=== PATIENT | female | born 1955 | race Caucasian/White ===

== ENCOUNTER 2020-08-24 12:45 | Outpatient (RCR) | payer OTHER, SELFPAY ==
--- NOTE | 2020-08-04 17:37 | PT.OIE ---
Current Diagnoses Stiffness of unspecified hip, not elsewhere classified (08/04/20) Muscle weakness (generalized) (08/04/20) Mixed incontinence (08/04/20) Pelvic and perineal pain (08/04/20) Abnormal posture (08/04/20) Visit Care Team Role Provider Type Hazel Otero ND Attending Provider Non-Staff Primary Care Provider Referring Provider Specialty: Naturopathy Address: [address] [place] [address], [facility] Email: Physical Therapy Initial Evaluation PT-OP-A Visit Information Start: 07/30/20 18:07 Freq: Status: Active Protocol: Document 08/04/20 10:36 LRN (Rec: 08/04/20 12:35 LRN [id number]) Out-Patient Physical Therapy Visit Information Visit Information Visit Type Initial Evaluation Visit Start Time 10:36 Visit Stop Time 11:16 Total Visit Minutes 40 Visit Number 1 Evaluation Information Evaluation Date 08/04/20 Precautions Precautions Uncontrolled HBP, Bruise easily PT-OP-B Current Condition Start: 07/30/20 18:07 Freq: Status: Active Protocol: Document 08/04/20 10:36 LRN (Rec: 08/04/20 12:35 LRN [id number]) Current Condition History of Current Condition Onset Date 20 yrs ago Current Complaints Small to lg leakage with urgency, sometimes uncontrolled flatulence. History of Current Condition Pt has had problem with urinary leakage for 20 yrs and was recommended by referring physician for trial of PT to help with incontinence. Prior Treatments and Tests None Future Testing and Treatments Planned None Developmental History Developmental History No childbearing. Treatment Goals Patient/Caregiver Goals Pt goal is to not leak with urgency and to decrease number of voids through the day. Prior Functional Status Baseline Function- ADL's Independent Baseline Function- Mobility Independent Baseline Function- Gait No leakage Baseline Function- Recreation/Hobbies Travelling for 3-4 hours able to travel without needing to stop or leaked. Baseline Function- Other Travelling for 3-4 hours able to travel without needing to stop or leaked. Current Functional Impairments (Reported) Functional Limitations- ADL's Sometimes traveling 30' is a problem if drinking, and has major urgency when arriviing in [place] and can hardly hold her urine. Functional Limitations- Recreation/ Same as prior. Hobbies Functional Limitations- Other Traveling for 3-4 hours able to travel without needing to stop or leaked. Personal Factors Other Personal Factors That May Effect Uncontrolled high blood Therapy/Recovery pressure. PT-OP-C Subjective Start: 07/30/20 18:07 Freq: Status: Active Protocol: Document 08/04/20 10:36 LRN (Rec: 08/04/20 12:35 LRN [id number]) Patient Questionnaires Pelvic Pain and Urgency/Frequency Patient Symptom Scale Pelvic Pain Score 10 PT-OP-I Pelvic Floor Start: 07/30/20 18:07 Freq: Status: Active Protocol: Document 08/04/20 10:36 LRN (Rec: 08/04/20 12:35 LRN [id number]) Pelvic Floor Assessment Urine Pelvic Floor Surgery Yes Urinary Symptoms Urge Sensation Leakage Size Large Leakage Cause Urge Leaks Per Day 2 Voiding Frequency 10 Nocturia 1 Pads Used In 24 Hours 1 Urine Pad Type Panty Liner Bowel Bowel Surgery No Bowel Symptoms Uncontrolled Flatulence Bowel Movement Frequency 1 [place] Stool Chart Type 1-7 4 Pelvic Clock Pelvic Clock 12-3 Tenderness,Tightness Pelvic Clock 3-6 Tenderness,Tightness Pelvic Clock 6-9 Tenderness,Tightness Pelvic Clock 9-12 Tightness Pelvic Clock Other Specific areas of tenderness: 2-5 & 7-10 of PF clock Tender at Perineal Node Perineal Descent Resting Absent Bearing Absent Contraction Ability Voluntary Contraction Weak Voluntary Relaxation Weak Manual Muscle Testing Left 2 Manual Muscle Testing Right 2 Manual Muscle Testing Anterior 2 Manual Muscle Testing Posterior 1 Muscle Endurance (Seconds) 10 Number of Quick Contractions In 10 3 Seconds Comments Pelvic Floor Comments Poor relaxation of PF PT-OP-J Posture/Palpation/Skin Start: 07/30/20 18:07 Freq: Status: Active Protocol: Document 08/04/20 10:36 LRN (Rec: 08/04/20 12:35 LRN [id number]) Posture Evaluation Position Standing Head/C-Spine Posture Forward Head T-Spine Posture Flattened L-Spine Posture Increased Lordosis Shoulder Posture (L) Elevated Arm Posture (L) Neutral,(R) Neutral Pelvis Posture Anteriorly Tilted,(R) Iliac Crest Superior Weight Distribution Balanced Knee Posture (L) Genu Valgus,(R) Genu Valgus Comments Posture Comments Valgus Achilles L>R, C-curve with apex left in L/S, R PSIS is deep in standing. PT-OP-K Range of Motion Start: 07/30/20 18:07 Freq: Status: Active Protocol: Document 08/04/20 10:36 LRN (Rec: 08/04/20 12:35 LRN [id number]) Lumbar Spine Range of Motion Lumbar Spine Active Percentage Testing Position Standing Rotation Right 80 ROM Limitations Soft Tissue Tightness Comments Trunk AROM is normal except with R rotation as shown above . Pt noted tightness with R SB. Hip Goniometric Range of Motion Hip Right Passive Testing Position Supine Internal Rotation 40 External Rotation 75 Left Passive Testing Position Supine Internal Rotation 45 External Rotation 60 PT-OP-M Strength Start: 07/30/20 18:07 Freq: Status: Active Protocol: Document 08/04/20 10:36 LRN (Rec: 08/04/20 12:35 LRN [id number]) Trunk Strength Trunk Manual Muscle Testing Core Stabilization Poor core stabilization with LE MMT. Hip Strength Hip Manual Muscle Testing Right Flexion (L2) 3+ Fair+ Extension (S1) 3 Fair Abduction 3 Fair Adduction 5 Normal External Rotation 4+ Good+ Internal Rotation 4 Good Left Flexion (L2) 3 Fair Extension (S1) 3 Fair Abduction 3 Fair Adduction 5 Normal External Rotation 3 Fair Internal Rotation 4+ Good+ Comments L knee creaks with ER testing PT-OP-Q Treatments Start: 07/30/20 18:07 Freq: Status: Active Protocol: Document 08/04/20 10:36 LRN (Rec: 08/04/20 12:35 LRN [id number]) Self-Care/Home Management Treatment Education Patient Education Home Exercise Program Other Education Pt educated in results of evaluation and discussed her condition of tightness of PF and to become more aware of relaxation of PF. Also discussed goals and plan of care, pt agreeable. Educated pt in Bladder diary use. Activities Self-Care/Home Management Activities Issued Bladder diary with I/S for daily use and I/S pt in the filling out of all columns . Issued & reviewed from Kegel handout Common errors and I/S to perform Kegel correctly. Pt I/S not to practice Kegels, but to work on relaxation of PF. PT-OP-T Assessment and Plan Start: 07/30/20 18:07 Freq: Status: Active Protocol: Document 08/04/20 10:36 LRN (Rec: 08/04/20 12:35 LRN [id number]) Physical Therapy Assessment Rehab Potential Rehabilitation Potential Excellent Evaluation Complexity Number of Personal Factors/Comorbidities 1-2 Number of Body Systems Impaired 4 or More Clinical Presentation at Evaluation Stable Impairments Impairments Pain,Posture,ROM,Soft Tissue Mobility Goals Four Impairment Decreased hip rotation mobility (IR 45 L, 60 R; ER 75 L, 75 R). Short Term Goal (STG) Pt will be independent with a HEP of hip stretches (hip AB's and IR/ER's). STG Duration 09/11/20 Jail Goal (LTG) Pt will demonstrate improved bilateral hip rotation and AB mobility. LTG Duration 09/24/20 Three Impairment Increased PF ms tone with pain at perineal node and PF clock Short Term Goal (STG) Pt will be educated in methods to quiet the autonomic nervous system to decrease resting tone and urgency (deep breathing and imagery) STG Duration 08/28/20 Public Health Physician Goal (LTG) Pt will be able to relax the PF to 2-3 mV?s less than initial assessment, in the supine position. LTG Duration 11/02/20 Two Impairment Increased urinary frequency Short Term Goal (STG) Pt will be educated in recommended in appropriate fluid intake values and urinary urge deference technique to assess appropriateness. STG Duration 11/14/20 Jail Goal (LTG) Decrease toileting frequency from 10 toiletings to 7-8 during the day. LTG Duration 11/02/20 One Impairment Lacks appropriate self care HEP Jail Goal (LTG) Pt will be independent with a self care HEP to manage her condition. LTG Duration 11/02/20 Assessment Summary Assessment Pt is a 64 yo female who presents with long standing urge incontinence for the past 20 years. Her urge urinary leakage appears due to tight PF muscles with inability to relax between quick contractions. She is able to hold an PF contraction but may lack the strength of contraction due to PF tightness. She has tenderness at 2-5, 7-10 of PF clock and at the perineal node. She has postural changes with anterior tilt of the pelvis, elevated R iliac crest and C- curvature of the lumbar spine with apex on the left. She doesn't appear to have involvement of her GI system although she reports some trouble with uncontrolled flatulence. Physical Therapy Plan Frequency and Duration Frequency of Treatment 1x/Week Plan of Care Start Date 08/04/20 Plan of Care End Date 11/02/20 Therapeutic Interventions Therapeutic Interventions Home Exercise Program,Joint Mobilizations,Manual Therapy, Patient/Caregiver Education, Self-Care/Home Management,Soft Tissue Mobilization, Therapeutic Activities, Therapeutic Exercises Modalities Cold Pack/Ice Massage,Electric Stimulation,Hot Packs Next Visit Focus/Plan Next Note Type Treatment Note Next Visit Plan EMG Biofeed back assessment for PF tone (for goal #3). Review bladder diary. Assess Posterior PF for soft tissue tightness/tenderness, educate pt in PF ms relaxation techniques (deep breathing/ imagery), education in proper perineum care, deep breathing and transfers, STM with use of dilator on PF (2-5 & 7-10 of PF clock), HEP for hip ER/IR, AB stretches & hip/core strengthening. ?train PF contraction in abscensce of assistive muscles. Biofeedback for relaxation of PF. Improve abdominal soft tissue (bladder) mobility if needed, discuss foods, and water intake.
--- NOTE | 2020-08-10 16:22 | PT.OTN ---
Current Diagnoses Stiffness of unspecified hip, not elsewhere classified (08/10/20) Muscle weakness (generalized) (08/10/20) Mixed incontinence (08/10/20) Pelvic and perineal pain (08/10/20) Abnormal posture (08/10/20) Physical Therapy Treatment Note PT-OP-A Visit Information Start: 07/30/20 18:07 Freq: Status: Active Protocol: Document 08/10/20 12:46 LRN (Rec: 08/10/20 13:32 LRN [id number]) Out-Patient Physical Therapy Visit Information Visit Information Visit Type Treatment Note Visit Start Time 12:46 Visit Stop Time 13:26 Total Visit Minutes 40 Visit Number 2 Evaluation Information Evaluation Date 08/04/20 Precautions Precautions Uncontrolled HBP, Bruise easily PT-OP-B Current Condition Start: 07/30/20 18:07 Freq: Status: Active Protocol: Document 08/04/20 10:36 LRN (Rec: 08/04/20 12:35 LRN [id number]) Current Condition History of Current Condition Onset Date 20 yrs ago Current Complaints Small to lg leakage with urgency, sometimes uncontrolled flatulence. History of Current Condition Pt has had problem with urinary leakage for 20 yrs and was recommended by referring physician for trial of PT to help with incontinence. Prior Treatments and Tests None Future Testing and Treatments Planned None Developmental History Developmental History No childbearing. Treatment Goals Patient/Caregiver Goals Pt goal is to not leak with urgency and to decrease number of voids through the day. Prior Functional Status Baseline Function- ADL's Independent Baseline Function- Mobility Independent Baseline Function- Gait No leakage Baseline Function- Recreation/Hobbies Travelling for 3-4 hours able to travel without needing to stop or leaked. Baseline Function- Other Travelling for 3-4 hours able to travel without needing to stop or leaked. Current Functional Impairments (Reported) Functional Limitations- ADL's Sometimes traveling 30' is a problem if drinking, and has major urgency when arriviing in [place] and can hardly hold her urine. Functional Limitations- Recreation/ Same as prior. Hobbies Functional Limitations- Other Traveling for 3-4 hours able to travel without needing to stop or leaked. Personal Factors Other Personal Factors That May Effect Uncontrolled high blood Therapy/Recovery pressure. PT-OP-C Subjective Start: 07/30/20 18:07 Freq: Status: Active Protocol: Document 08/10/20 12:46 LRN (Rec: 08/10/20 13:32 LRN [id number]) OP-PT Subjective Patient Comments Patient Comments Surprised she was not voiding as often as she thought and may not really need therapy. PT-OP-I Pelvic Floor Start: 07/30/20 18:07 Freq: Status: Active Protocol: Document 08/04/20 10:36 LRN (Rec: 08/04/20 12:35 LRN [id number]) Pelvic Floor Assessment Urine Pelvic Floor Surgery Yes Urinary Symptoms Urge Sensation Leakage Size Large Leakage Cause Urge Leaks Per Day 2 Voiding Frequency 10 Nocturia 1 Pads Used In 24 Hours 1 Urine Pad Type Panty Liner Bowel Bowel Surgery No Bowel Symptoms Uncontrolled Flatulence Bowel Movement Frequency 1 [place] Stool Chart Type 1-7 4 Pelvic Clock Pelvic Clock 12-3 Tenderness,Tightness Pelvic Clock 3-6 Tenderness,Tightness Pelvic Clock 6-9 Tenderness,Tightness Pelvic Clock 9-12 Tightness Pelvic Clock Other Specific areas of tenderness: 2-5 & 7-10 of PF clock Tender at Perineal Node Perineal Descent Resting Absent Bearing Absent Contraction Ability Voluntary Contraction Weak Voluntary Relaxation Weak Manual Muscle Testing Left 2 Manual Muscle Testing Right 2 Manual Muscle Testing Anterior 2 Manual Muscle Testing Posterior 1 Muscle Endurance (Seconds) 10 Number of Quick Contractions In 10 3 Seconds Comments Pelvic Floor Comments Poor relaxation of PF PT-OP-J Posture/Palpation/Skin Start: 07/30/20 18:07 Freq: Status: Active Protocol: Document 08/04/20 10:36 LRN (Rec: 08/04/20 12:35 LRN [id number]) Posture Evaluation Position Standing Head/C-Spine Posture Forward Head T-Spine Posture Flattened L-Spine Posture Increased Lordosis Shoulder Posture (L) Elevated Arm Posture (L) Neutral,(R) Neutral Pelvis Posture Anteriorly Tilted,(R) Iliac Crest Superior Weight Distribution Balanced Knee Posture (L) Genu Valgus,(R) Genu Valgus Comments Posture Comments Valgus Achilles L>R, C-curve with apex left in L/S, R PSIS is deep in standing. PT-OP-K Range of Motion Start: 07/30/20 18:07 Freq: Status: Active Protocol: Document 08/04/20 10:36 LRN (Rec: 08/04/20 12:35 LRN [id number]) Lumbar Spine Range of Motion Lumbar Spine Active Percentage Testing Position Standing Rotation Right 80 ROM Limitations Soft Tissue Tightness Comments Trunk AROM is normal except with R rotation as shown above . Pt noted tightness with R SB. Hip Goniometric Range of Motion Hip Right Passive Testing Position Supine Internal Rotation 40 External Rotation 75 Left Passive Testing Position Supine Internal Rotation 45 External Rotation 60 PT-OP-M Strength Start: 07/30/20 18:07 Freq: Status: Active Protocol: Document 08/04/20 10:36 LRN (Rec: 08/04/20 12:35 LRN [id number]) Trunk Strength Trunk Manual Muscle Testing Core Stabilization Poor core stabilization with LE MMT. Hip Strength Hip Manual Muscle Testing Right Flexion (L2) 3+ Fair+ Extension (S1) 3 Fair Abduction 3 Fair Adduction 5 Normal External Rotation 4+ Good+ Internal Rotation 4 Good Left Flexion (L2) 3 Fair Extension (S1) 3 Fair Abduction 3 Fair Adduction 5 Normal External Rotation 3 Fair Internal Rotation 4+ Good+ Comments L knee creaks with ER testing PT-OP-Q Treatments Start: 07/30/20 18:07 Freq: Status: Active Protocol: Document 08/10/20 12:46 LRN (Rec: 08/10/20 13:32 LRN [id number]) Therapeutic Exercises Supine Exercises Happy Baby Pose Supine Exercise Name Happy Baby Pose Reps/Minutes 3' Comments Verbal cuing using imagery. Deep Breathing Supine Exercise Name Deep Breathing Reps/Minutes 6 breaths. Comments Phys & verbal cuing with pt also putting hands on abdomen & chest. Self-Care/Home Management Treatment Education Other Education Reviewed bladder dairy and discussed at length areas of change (fluid loading in AM, decreasing bladder irritants in PM) discussed normal urination times and frequencies. Activities Self-Care/Home Management Activities Issued & review handouts for: Bladder retraining Food & Beverage Bladder Diet Suggestions. Deep breathing. Pt to work on bladder retraining, breathing for PF downtraining to decrease leakage (vs bladder retraining for control of incontinence), and change fluid intake to AM vs PM and possibly less consumption of bladder irritants in PM to decreased hourly voiding frequency. HEP I/S and reviewed: Happy Baby Pose & I/S for Child's pose. Baby Pose and cChilds's pose. PT-OP-T Assessment and Plan Start: 07/30/20 18:07 Freq: Status: Active Protocol: Document 08/10/20 12:46 LRN (Rec: 08/10/20 13:32 LRN [id number]) Physical Therapy Assessment Goals Four Impairment Decreased hip rotation mobility (IR 45 L, 60 R; ER 75 L, 75 R). Short Term Goal (STG) Pt will be independent with a HEP of hip stretches (hip AB's and IR/ER's). STG Duration 09/11/20 Residential Goal (LTG) Pt will demonstrate improved bilateral hip rotation and AB mobility. LTG Duration 09/24/20 Three Impairment Increased PF ms tone with pain at perineal node and PF clock Short Term Goal (STG) Pt will be educated in methods to quiet the autonomic nervous system to decrease resting tone and urgency (deep breathing and imagery). (08/10/20: Pt educated in deep breathing for downtraining of nervous system) STG Duration 08/28/20 Residential Goal (LTG) Pt will be able to relax the PF to 2-3 mV?s less than initial assessment, in the supine position. LTG Duration 11/02/20 Two Impairment Increased urinary frequency Short Term Goal (STG) Pt will be educated in recommended in appropriate fluid intake values and urinary urge deference technique to assess appropriateness. (08/10/20: Pt educated in Urge deference techinque) STG Duration 11/14/20 (08/10/20: Progressing) Residential Goal (LTG) Decrease toileting frequency from 10 toiletings to 7-8 during the day. LTG Duration 11/02/20 One Impairment Lacks appropriate self care HEP [employer] Goal (LTG) Pt will be independent with a self care HEP to manage her condition. LTG Duration 11/02/20 (08/10/20: Initiated HEP) Progress Towards Goals Progress Comments Progressed self care program. Assessment Summary Assessment Per bladder diary review, pt is variable in voiding schedule with voids every hour to every 3 hours (when not ingesting bladder irritants of wine/chocolate). The pt does drink a lot of green tea, but drinks mostly in the PM due to what she says is thirst related. Pt did not experience much stretch to her PF with Happy Baby Pose. PF tone assessment per EMG biofeedback may be helpful to identify PF tightness. Physical Therapy Plan Frequency and Duration Frequency of Treatment 1x/Week Plan of Care Start Date 08/04/20 Plan of Care End Date 11/02/20 Next Visit Focus/Plan Next Note Type Treatment Note Next Visit Plan Review Happy Baby Pose & Child 's Pose (and issue HEP). Assess fluid intake compared to weight and review bladder diary of pt's bladder retraining and changes in fluid intake in AM vs PM ( thirsty?). EMG Biofeed back assessment for PF tone (for goal #3). Assess Posterior PF for soft tissue tightness/ tenderness, educate pt in PF ms relaxation techniques (deep breathing/imagery), education in proper perineum care, deep breathing and transfers, STM with use of dilator on PF (2-5 & 7-10 of PF clock), HEP for hip ER/IR, AB stretches & hip/ core strengthening. ?train PF contraction in abscensce of assistive muscles. Biofeedback for relaxation of PF. Improve abdominal soft tissue (bladder) mobility if needed, discuss foods, and water intake.
--- NOTE | 2020-08-24 17:29 | PT.OTN ---
Current Diagnoses Stiffness of unspecified hip, not elsewhere classified (08/24/20) Muscle weakness (generalized) (08/24/20) Mixed incontinence (08/24/20) Pelvic and perineal pain (08/24/20) Abnormal posture (08/24/20) Physical Therapy Treatment Note PT-OP-A Visit Information Start: 07/30/20 18:07 Freq: Status: Active Protocol: Document 08/24/20 12:50 LRN (Rec: 08/24/20 13:39 LRN [id number]) Out-Patient Physical Therapy Visit Information Visit Information Visit Type Treatment Note Visit Start Time 12:50 Visit Stop Time 13:34 Total Visit Minutes 44 Visit Number 3 Evaluation Information Evaluation Date 08/04/20 Precautions Precautions Uncontrolled HBP, Bruise easily PT-OP-B Current Condition Start: 07/30/20 18:07 Freq: Status: Active Protocol: Document 08/04/20 10:36 LRN (Rec: 08/04/20 12:35 LRN [id number]) Current Condition History of Current Condition Onset Date 20 yrs ago Current Complaints Small to lg leakage with urgency, sometimes uncontrolled flatulence. History of Current Condition Pt has had problem with urinary leakage for 20 yrs and was recommended by referring physician for trial of PT to help with incontinence. Prior Treatments and Tests None Future Testing and Treatments Planned None Developmental History Developmental History No childbearing. Treatment Goals Patient/Caregiver Goals Pt goal is to not leak with urgency and to decrease number of voids through the day. Prior Functional Status Baseline Function- ADL's Independent Baseline Function- Mobility Independent Baseline Function- Gait No leakage Baseline Function- Recreation/Hobbies Travelling for 3-4 hours able to travel without needing to stop or leaked. Baseline Function- Other Travelling for 3-4 hours able to travel without needing to stop or leaked. Current Functional Impairments (Reported) Functional Limitations- ADL's Sometimes traveling 30' is a problem if drinking, and has major urgency when arriviing in [place] and can hardly hold her urine. Functional Limitations- Recreation/ Same as prior. Hobbies Functional Limitations- Other Traveling for 3-4 hours able to travel without needing to stop or leaked. Personal Factors Other Personal Factors That May Effect Uncontrolled high blood Therapy/Recovery pressure. PT-OP-C Subjective Start: 07/30/20 18:07 Freq: Status: Active Protocol: Document 08/24/20 12:50 LRN (Rec: 08/24/20 13:39 LRN [id number]) OP-PT Subjective Patient Comments Patient Comments Breathing thing is really helping. Can stop the urgency and can go longer without urinating. Not really thirsty in PM when drinking more fluids in AM. PT-OP-I Pelvic Floor Start: 07/30/20 18:07 Freq: Status: Active Protocol: Document 08/04/20 10:36 LRN (Rec: 08/04/20 12:35 LRN [id number]) Pelvic Floor Assessment Urine Pelvic Floor Surgery Yes Urinary Symptoms Urge Sensation Leakage Size Large Leakage Cause Urge Leaks Per Day 2 Voiding Frequency 10 Nocturia 1 Pads Used In 24 Hours 1 Urine Pad Type Panty Liner Bowel Bowel Surgery No Bowel Symptoms Uncontrolled Flatulence Bowel Movement Frequency 1 [place] Stool Chart Type 1-7 4 Pelvic Clock Pelvic Clock 12-3 Tenderness,Tightness Pelvic Clock 3-6 Tenderness,Tightness Pelvic Clock 6-9 Tenderness,Tightness Pelvic Clock 9-12 Tightness Pelvic Clock Other Specific areas of tenderness: 2-5 & 7-10 of PF clock Tender at Perineal Node Perineal Descent Resting Absent Bearing Absent Contraction Ability Voluntary Contraction Weak Voluntary Relaxation Weak Manual Muscle Testing Left 2 Manual Muscle Testing Right 2 Manual Muscle Testing Anterior 2 Manual Muscle Testing Posterior 1 Muscle Endurance (Seconds) 10 Number of Quick Contractions In 10 3 Seconds Comments Pelvic Floor Comments Poor relaxation of PF PT-OP-J Posture/Palpation/Skin Start: 07/30/20 18:07 Freq: Status: Active Protocol: Document 08/04/20 10:36 LRN (Rec: 08/04/20 12:35 LRN [id number]) Posture Evaluation Position Standing Head/C-Spine Posture Forward Head T-Spine Posture Flattened L-Spine Posture Increased Lordosis Shoulder Posture (L) Elevated Arm Posture (L) Neutral,(R) Neutral Pelvis Posture Anteriorly Tilted,(R) Iliac Crest Superior Weight Distribution Balanced Knee Posture (L) Genu Valgus,(R) Genu Valgus Comments Posture Comments Valgus Achilles L>R, C-curve with apex left in L/S, R PSIS is deep in standing. PT-OP-K Range of Motion Start: 07/30/20 18:07 Freq: Status: Active Protocol: Document 08/04/20 10:36 LRN (Rec: 08/04/20 12:35 LRN [id number]) Lumbar Spine Range of Motion Lumbar Spine Active Percentage Testing Position Standing Rotation Right 80 ROM Limitations Soft Tissue Tightness Comments Trunk AROM is normal except with R rotation as shown above . Pt noted tightness with R SB. Hip Goniometric Range of Motion Hip Right Passive Testing Position Supine Internal Rotation 40 External Rotation 75 Left Passive Testing Position Supine Internal Rotation 45 External Rotation 60 PT-OP-M Strength Start: 07/30/20 18:07 Freq: Status: Active Protocol: Document 08/04/20 10:36 LRN (Rec: 08/04/20 12:35 LRN [id number]) Trunk Strength Trunk Manual Muscle Testing Core Stabilization Poor core stabilization with LE MMT. Hip Strength Hip Manual Muscle Testing Right Flexion (L2) 3+ Fair+ Extension (S1) 3 Fair Abduction 3 Fair Adduction 5 Normal External Rotation 4+ Good+ Internal Rotation 4 Good Left Flexion (L2) 3 Fair Extension (S1) 3 Fair Abduction 3 Fair Adduction 5 Normal External Rotation 3 Fair Internal Rotation 4+ Good+ Comments L knee creaks with ER testing PT-OP-Q Treatments Start: 07/30/20 18:07 Freq: Status: Active Protocol: Document 08/24/20 12:50 LRN (Rec: 08/24/20 13:39 LRN [id number]) Therapeutic Exercises Supine Exercises Lateral hip stretch Supine Exercise Name Lateral Hip stretch Side bilateral Reps/Minutes 4' Comments Extra time to determine proper stretch position Piriformis stretch Supine Exercise Name Knee to opposite shoulder Side bilateral Reps/Minutes 4' Happy Baby Pose Supine Exercise Name Happy Baby Pose & as KTC Reps/Minutes 4' x 2 Comments Verbal cuing using imagery. Deep Breathing Supine Exercise Name Deep Breathing Reps/Minutes 6 breaths. Comments Phys & verbal cuing with pt also putting hands on abdomen & chest. Standing Exercises Perineum/PF Standing Exercise Name Education of Happy Baby like Pose for squat Reps/Minutes 2' Hamstring Standing Exercise Name Hamstring Side bilateral Reps/Minutes 4' Other Exercises Child's Pose Other Exercise Name Child's Pose Equipment Used Pillows Reps/Minutes 4' Comments Extra time to determine max positioning (pillows under hips) Self-Care/Home Management Treatment Education Patient Education Home Exercise Program Other Education Reviewed bladder diary and discussed precautions of using delay technique (bladder full , etc) and discussed pt's goal of urinating every 2 hours. Pt thinks every 2 hours may be acceptable. Educated pt and discussed general vulvar care and proper genital hygiene, with handout issued and reviewed. Activities Self-Care/Home Management Activities Issued & reviewed HEP: Happy Baby Pose & Child's Pose, Hip stretches (inner thigh, hamstrings, piriformis, lateral hip & KTC). PT-OP-T Assessment and Plan Start: 07/30/20 18:07 Freq: Status: Active Protocol: Document 08/24/20 12:50 LRN (Rec: 08/24/20 13:39 LRN [id number]) Physical Therapy Assessment Goals Four Impairment Decreased hip rotation mobility (IR 45 L, 60 R; ER 75 L, 75 R). Short Term Goal (STG) Pt will be independent with a HEP of hip stretches (hip AB's and IR/ER's). (08/24/20: Issued HEP: hip rotation and AD stretches) STG Duration 09/11/20 (08/24/20: MET GOAL) Tone Cabinet Assembler Goal (LTG) Pt will demonstrate improved bilateral hip rotation and AB mobility. LTG Duration 09/24/20 Three Impairment Increased PF ms tone with pain at perineal node and PF clock Short Term Goal (STG) Pt will be educated in methods to quiet the autonomic nervous system to decrease resting tone and urgency (deep breathing and imagery). (08/24/20: Pt further educated in deep breathing of 5-6 secs vs 4 sec breaths for downtraining of nervous system ) STG Duration 08/28/20 (08/24/20: Progressing ) Prison Goal (LTG) Pt will be able to relax the PF to 2-3 mV?s less than initial assessment, in the supine position. LTG Duration 11/02/20 Two Impairment Increased urinary frequency Short Term Goal (STG) Pt will be educated in recommended in appropriate fluid intake values and urinary urge deference technique to assess appropriateness. (08/10/20: Pt educated in Urge deference techinque) STG Duration 11/14/20 (08/24/20: MET GOAL) Prison Goal (LTG) Decrease toileting frequency from 10 toiletings to 7-8 during the day. LTG Duration 11/02/20 (08/24/20: MET GOAL) One Impairment Lacks appropriate self care HEP Prison Goal (LTG) Pt will be independent with a self care HEP to manage her condition. LTG Duration 11/02/20 (08/10/20: Initiated HEP) Progress Towards Goals Progress Towards Goals Progressing Toward Goals Progress Comments Progressed HEP. Goal #2 MET for reducing voiding frequency. Assessment Summary Assessment Pt happy with urinary frequency of every 2 hours; therefore goal #2 MET. STG #4 MET. HEP of hip rotation and AD stretch issued . She was able to perform hip rotation stretch ex's properly after training. Pt able to deep breath 4 secs. Physical Therapy Plan Frequency and Duration Frequency of Treatment 1x/Week Plan of Care Start Date 08/04/20 Plan of Care End Date 11/02/20 Next Visit Focus/Plan Next Note Type Treatment Note Next Visit Plan Possible need for EMG Biofeed back assessment for PF tone ( for goal #3). Assess Posterior PF for soft tissue tightness/tenderness, educate pt in PF ms relaxation techniques (deep breathing of 5-6 secs/imagery), deep breathing with transfers, STM with use of dilator on PF (2-5 & 7-10 of PF clock), HEP for hip/core strengthening. ? train PF contraction in abscensce of assistive muscles . Biofeedback for relaxation of PF. Improve abdominal soft tissue (bladder) mobility if needed, discuss foods, and water intake.
--- NOTE | 2020-09-04 08:11 | PT-OP ANOTE ---
Late Entry: Message received by office, on 08/31/20, pt cancelled this days appointment and all remaining appointments due to no longer needing therapy. Pt requested discharge from therapy.
--- NOTE | 2020-09-04 08:16 | PT.OPDS ---
Current Diagnoses Stiffness of unspecified hip, not elsewhere classified (08/24/20) Muscle weakness (generalized) (08/24/20) Mixed incontinence (08/24/20) Pelvic and perineal pain (08/24/20) Abnormal posture (08/24/20) Visit Care Team Role Provider Type Hazel Otero ND Attending Provider Non-Staff Primary Care Provider Referring Provider Specialty: Naturopathy [address]: [address] [place] [address] Email: Visit Number Visit Number 3 Discharge Summary PT-OP-B Current Condition Start: 07/30/20 18:07 Freq: Status: Active Protocol: Document 08/04/20 10:36 LRN (Rec: 08/04/20 12:35 LRN [id number]) Current Condition History of Current Condition Onset Date 20 yrs ago Current Complaints Small to lg leakage with urgency, sometimes uncontrolled flatulence. History of Current Condition Pt has had problem with urinary leakage for 20 yrs and was recommended by referring physician for trial of PT to help with incontinence. Prior Treatments and Tests None Future Testing and Treatments Planned None Developmental History Developmental History No childbearing. Treatment Goals Patient/Caregiver Goals Pt goal is to not leak with urgency and to decrease number of voids through the day. Prior Functional Status Baseline Function- ADL's Independent Baseline Function- Mobility Independent Baseline Function- Gait No leakage Baseline Function- Recreation/Hobbies Travelling for 3-4 hours able to travel without needing to stop or leaked. Baseline Function- Other Travelling for 3-4 hours able to travel without needing to stop or leaked. Current Functional Impairments (Reported) Functional Limitations- ADL's Sometimes traveling 30' is a problem if drinking, and has major urgency when arriviing in [place] and can hardly hold her urine. Functional Limitations- Recreation/ Same as prior. Hobbies Functional Limitations- Other Traveling for 3-4 hours able to travel without needing to stop or leaked. Personal Factors Other Personal Factors That May Effect Uncontrolled high blood Therapy/Recovery pressure. PT-OP-C Subjective Start: 07/30/20 18:07 Freq: Status: Active Protocol: Document 08/24/20 12:50 LRN (Rec: 08/24/20 13:39 LRN [id number]) OP-PT Subjective Patient Comments Patient Comments Breathing thing is really helping. Can stop the urgency and can go longer without urinating. Not really thirsty in PM when drinking more fluids in AM. PT-OP-I Pelvic Floor Start: 07/30/20 18:07 Freq: Status: Active Protocol: Document 08/04/20 10:36 LRN (Rec: 08/04/20 12:35 LRN [id number]) Pelvic Floor Assessment Urine Pelvic Floor Surgery Yes Urinary Symptoms Urge Sensation Leakage Size Large Leakage Cause Urge Leaks Per Day 2 Voiding Frequency 10 Nocturia 1 Pads Used In 24 Hours 1 Urine Pad Type Panty Liner Bowel Bowel Surgery No Bowel Symptoms Uncontrolled Flatulence Bowel Movement Frequency 1 [place] Stool Chart Type 1-7 4 Pelvic Clock Pelvic Clock 12-3 Tenderness,Tightness Pelvic Clock 3-6 Tenderness,Tightness Pelvic Clock 6-9 Tenderness,Tightness Pelvic Clock 9-12 Tightness Pelvic Clock Other Specific areas of tenderness: 2-5 & 7-10 of PF clock Tender at Perineal Node Perineal Descent Resting Absent Bearing Absent Contraction Ability Voluntary Contraction Weak Voluntary Relaxation Weak Manual Muscle Testing Left 2 Manual Muscle Testing Right 2 Manual Muscle Testing Anterior 2 Manual Muscle Testing Posterior 1 Muscle Endurance (Seconds) 10 Number of Quick Contractions In 10 3 Seconds Comments Pelvic Floor Comments Poor relaxation of PF PT-OP-J Posture/Palpation/Skin Start: 07/30/20 18:07 Freq: Status: Active Protocol: Document 08/04/20 10:36 LRN (Rec: 08/04/20 12:35 LRN [id number]) Posture Evaluation Position Standing Head/C-Spine Posture Forward Head T-Spine Posture Flattened L-Spine Posture Increased Lordosis Shoulder Posture (L) Elevated Arm Posture (L) Neutral,(R) Neutral Pelvis Posture Anteriorly Tilted,(R) Iliac Crest Superior Weight Distribution Balanced Knee Posture (L) Genu Valgus,(R) Genu Valgus Comments Posture Comments Valgus Achilles L>R, C-curve with apex left in L/S, R PSIS is deep in standing. PT-OP-K Range of Motion Start: 07/30/20 18:07 Freq: Status: Active Protocol: Document 08/04/20 10:36 LRN (Rec: 08/04/20 12:35 LRN [id number]) Lumbar Spine Range of Motion Lumbar Spine Active Percentage Testing Position Standing Rotation Right 80 ROM Limitations Soft Tissue Tightness Comments Trunk AROM is normal except with R rotation as shown above . Pt noted tightness with R SB. Hip Goniometric Range of Motion Hip Right Passive Testing Position Supine Internal Rotation 40 External Rotation 75 Left Passive Testing Position Supine Internal Rotation 45 External Rotation 60 PT-OP-M Strength Start: 07/30/20 18:07 Freq: Status: Active Protocol: Document 08/04/20 10:36 LRN (Rec: 08/04/20 12:35 LRN [id number]) Trunk Strength Trunk Manual Muscle Testing Core Stabilization Poor core stabilization with LE MMT. Hip Strength Hip Manual Muscle Testing Right Flexion (L2) 3+ Fair+ Extension (S1) 3 Fair Abduction 3 Fair Adduction 5 Normal External Rotation 4+ Good+ Internal Rotation 4 Good Left Flexion (L2) 3 Fair Extension (S1) 3 Fair Abduction 3 Fair Adduction 5 Normal External Rotation 3 Fair Internal Rotation 4+ Good+ Comments L knee creaks with ER testing PT-OP-T Assessment and Plan Start: 07/30/20 18:07 Freq: Status: Active Protocol: Document 09/04/20 08:13 LRN (Rec: 09/04/20 08:16 LRN [id number]) Physical Therapy Assessment Goals Four Impairment Decreased hip rotation mobility (IR 45 L, 60 R; ER 75 L, 75 R). Short Term Goal (STG) Pt will be independent with a HEP of hip stretches (hip AB's and IR/ER's). (08/24/20: Issued HEP: hip rotation and AD stretches) STG Duration 09/11/20 (08/24/20: MET GOAL) Consulting Hr Professional Goal (LTG) Pt will demonstrate improved bilateral hip rotation and AB mobility. LTG Duration 09/24/20 (09/04/20: Unable to assess, early discharge) Three Impairment Increased PF ms tone with pain at perineal node and PF clock Short Term Goal (STG) Pt will be educated in methods to quiet the autonomic nervous system to decrease resting tone and urgency (deep breathing and imagery). (08/24/20: Pt further educated in deep breathing of 5-6 secs vs 4 sec breaths for downtraining of nervous system ) STG Duration 08/28/20 (09/04/20: Unable to assess, early discharge) Consulting Hr Professional Goal (LTG) Pt will be able to relax the PF to 2-3 mV?s less than initial assessment, in the supine position. LTG Duration 11/02/20 (09/04/20: Unable to assess, early discharge) Two Impairment Increased urinary frequency Short Term Goal (STG) Pt will be educated in recommended in appropriate fluid intake values and urinary urge deference technique to assess appropriateness. (08/10/20: Pt educated in Urge deference techinque) STG Duration 11/14/20 (08/24/20: MET GOAL) Consulting Hr Professional Goal (LTG) Decrease toileting frequency from 10 toiletings to 7-8 during the day. LTG Duration 11/02/20 (08/24/20: MET GOAL) One Impairment Lacks appropriate self care HEP Consulting Hr Professional Goal (LTG) Pt will be independent with a self care HEP to manage her condition. LTG Duration 11/02/20 (08/10/20: Initiated HEP) Assessment Summary Assessment Pt called 08/31/20 cancelling appointment and all further appointments stating she no longer needed therapy and requests discharge from therapy. Pt met part of her goals, other goals not assessed due to self discharge and pt not available for assessment. Physical Therapy Plan Discharge Physical Therapy Discharge Reasons Patient Request Discharge Comments Thank you for your referral.
== END 2020-09-04 13:39 | disposition home or self-care (01) ==
LOC: PHYS 12:45
PROVIDERS: PCP Naturopath; Referring Provider Naturopath; Visit Provider Naturopath
DX: N39.46 Mixed incontinence (principal); R29.3 Abnormal posture; M62.81 Muscle weakness (generalized); R10.2 Pelvic and perineal pain; M25.659 Stiffness of unspecified hip, not elsewhere classified
CPT/HCPCS: 97110; 97161; 97535

== ENCOUNTER → 2022-09-12 15:15 | Outpatient (CLI) | payer MEDICARE, OTHER, SELFPAY ==
[2022-09-12 16:01] LABS: Creatinine Urine Random 17.8 mg/dL
[2022-09-12 16:06] LABS: Microalbumin Urine Random < 0.6 mg/dL (0-1.6)
[2022-09-12 17:45] LABS: Alanine Aminotransferase 26 IU/L (<35); Albumin 4.5 g/dL (3.5-5.0); Albumin Globulin Ratio 1.3 (1.0-2.8); Alkaline Phosphatase 79 U/L (38-126); Aspartate Aminotransferase 34 IU/L (14-36); BUN Creatinine Ratio 17.4 (6-22); Bilirubin Total 0.5 mg/dL (0.2-1.3); Blood Urea Nitrogen 12 mg/dL (7-17); Calcium 9.5 mg/dL (8.4-10.2); Carbon Dioxide 30 mmol/L (22-32); Chloride 95 mmol/L (98-107); Estimated Glomerular Filt Rate > 60 mL/min (>60); Globulin 3.5 g/dL (1.7-4.1); Glucose 95 mg/dL (80-110); HEMOLYSIS < 15 (0-50); Sodium 132 mmol/L (137-145)
== END ==
PROVIDERS: PCP Family Medicine; Referring Provider Family Medicine; Visit Provider Family Medicine
DX: I10 Essential (primary) hypertension (principal)
CPT/HCPCS: 36415; 80053; 82043; 82570

== ENCOUNTER → 2024-10-17 11:48 | Outpatient (CLI) | payer MEDICARE, BC, SELFPAY ==
[2024-10-17 12:57] LABS: Alanine Aminotransferase 29 IU/L (<35); Albumin 4.6 g/dL (3.5-5.0); Albumin Globulin Ratio 1.4 (1.0-2.8); Alkaline Phosphatase 71 U/L (38-126); Blood Urea Nitrogen 15 mg/dL (7-17); Calcium 10.0 mg/dL (8.4-10.2); Carbon Dioxide 28 mmol/L (22-32); Chloride 96 mmol/L (98-107); Estimated Glomerular Filt Rate > 60 mL/min (>60); Globulin 3.3 g/dL (1.7-4.1); Glucose 94 mg/dL (70-99); HEMOLYSIS < 15 (0-50); Potassium 3.9 mmol/L (3.4-5.1); Sodium 134 mmol/L (137-145); Total Protein 7.9 g/dL (6.3-8.2)
== END ==
PROVIDERS: PCP Family Medicine; Referring Provider Family Medicine; Visit Provider Family Medicine
DX: E87.1 Hypo-osmolality and hyponatremia (principal)
CPT/HCPCS: 36415; 80053

== ENCOUNTER → 2025-03-18 11:16 | Outpatient (CLI) | payer MEDICARE, BC, SELFPAY | PROVIDERS: PCP Family Medicine; Referring Provider Family Medicine; Visit Provider Family Medicine | DX: Z12.11 Encounter for screening for malignant neoplasm of colon (principal) | CPT/HCPCS: 82274 ==